=== PATIENT | male | born 1975 | race Caucasian/White ===

== ENCOUNTER 2024-12-23 19:38 | Emergency (ER) | payer SELFPAY ==
[2024-12-23 19:42] VITALS: BP 177/106
--- NOTE | 2024-12-23 20:20 | ED.GENMED ---
History of Present Illness
General
Chief Complaint: Crisis Evaluation
Source: patient
Exam Limitations: none
Time Seen by Provider: 12/23/24 20:03
History of Present Illness
History of Present Illness:
Patient with history of ADHD, anxiety, and bipolar disorder, who lives at home with his parents, presents to ED for evaluation with concern that he may not be taking his medications as prescribed. However, upon arrival to ED, patient states that he
is in fact taking his medications. Denies recent illness. Denies recent change in medications. Denies suicidal or homicidal ideation. Per parents, they are concerned that he is not 'functioning' normally and is concerned about his future.
Past History
Past History
ED Past Medical History: Psychiatric (bipolar disorder); Negative Arrthythmia
ED Past Surgical History: Other (Unknown abdominal surgery)
Social History
Tobacco: Non-smoker
Drug: None
Personal: Single
Living: with family
Employment: Employed
Review of Systems
Review of Systems
Allergies reviewed?: Yes
All Other Systems: ROS reviewed and negative except as documented in HPI and ROS
Constitutional: Reports no symptoms; Denies fever
Respiratory: Reports no symptoms
Cardiac: Reports no symptoms
ABD/GI: Reports no symptoms
Musculoskeletal: Reports no symptoms
Skin: Reports no symptoms
Neurological: Reports no symptoms
Psychiatric: Reports no symptoms
Phy Exam
Physical Exam
Physical Exam:
Physical Exam
General: no apparent distress, not acutely ill. afebrile
Head: nc/at. eomi
Neck: supple. normal range of motion
Neuro: alert and oriented x 3. no focal neurological deficits
Skin: no rash
Psychiatric: well kept. interactive and cooperative
Extremities: no edema. no calf tenderness.
Course
Orders/Labs/Results
Orders:
Orders
12/23/24 20:05
Crisis Consult Urgent
Reason for Consult: medication noncompliance
Vital Signs
Initial and Last Documented VS:
Initial Vital Signs
Temp Pulse Resp BP Pulse Ox
98.5 F 107 16 177/106 100
12/23/24 19:42 12/23/24 19:42 12/23/24 19:42 12/23/24 19:42 12/23/24 19:42
Last Documented Vital Signs
Temp Pulse Resp BP Pulse Ox
98.5 F 107 16 177/106 100
12/23/24 19:42 12/23/24 19:42 12/23/24 19:42 12/23/24 19:42 12/23/24 20:22
MDM/Problems Addressed
MDM/Problems Addressed:
Awaiting evaluation by [facility] crisis. Patient otherwise is medically cleared and does not require any further evaluation.
Patient evaluated by [facility] darkroom worker. Patient will be contacted by [facility] for continual outpatient evaluation and treatment, including outpatient therapy. Patient and family are in agreement with treatment plan.
*Pulse Oximetry
SaO2: 100
Oxygen Mode of Delivery: Room air
Patient hypoxic: no
*Critical Care Note
Total Time (30-74mins, 75-104mins- exclusive of procedures): Not Applicable
ED Attending Note
-
Portions of this chart may have been created with voice recognition software.� Occasional wrong word or��sound alike� substitutions may have occurred due to the inherent limitations of voice recognition software.
Discharge Plan
Departure
Patient Disposition: Home (Routine Discharge)
Date of Disposition: 12/23/24
Time of Disposition: 20:59
Patient with high blood pressure during this ER visit?: Yes
Condition: Good
Discharge Problem:
Anxiety
Instructions: Anxiety, Adult (DC)
Prescriptions:
No Action
multivitamin [[id number]] 1 EACH tablet
1 ea PO DAILY
Fish Oil
1 tab PO DAILY
Patient Comments:
pt does not know vitamin doses
Magnesium
1 tab PO DAILY
Risperidone
1 tab PO HS
Patient Comments:
pt does not know dose
Vitamin C
1 tab PO DAILY
Vitamin D
1 tab PO DAILY
Depakote
1 tab PO DAILY
Referrals:
[facility] [Outside]
Activity Restrictions/Additional Instructions:
As discussed, please follow-up with provided outpatient resources for further evaluation and treatment.
Interventions
Interventions:
*Risk Screen - Suicide Last Done: 12/23/24 19:42
*Nursing Disposition Last Done: 12/23/24 21:29
Discharge Date and Time
Discharge Date/Time: 12/23/24 21:30
Print Language: [place]
== END 2024-12-23 21:30 | disposition home or self-care (01) ==
LOC: EMR 19:38
PROVIDERS: EMERGENCY PHYSICIAN Emergency Medicine
DX: F41.9 Anxiety disorder, unspecified (principal); F31.9 Bipolar disorder, unspecified; Z79.899 Other long term (current) drug therapy
CPT/HCPCS: 99283